=== PATIENT | male | born 1975 | race Caucasian/White ===

== ENCOUNTER 2021-01-12 01:23 | Emergency (ER) | payer SELFPAY ==
[~2021-01-12] VITALS: Ht 180.3 cm; Wt 104.3 kg
[2021-01-12 01:25] VITALS: BP 163/95
[2021-01-12] MEDS ORDERED: LORAZEPAM 1 MG TABLET ONE (01:39)
[2021-01-12] MEDS ORDERED: LORAZEPAM 1 MG TABLET PO ONE (02:00)
== END 2021-01-12 02:09 | disposition home or self-care (01) ==
LOC: ER 01:27
DX: F15.10 Other stimulant abuse, uncomplicated (principal); F41.9 Anxiety disorder, unspecified; Z59.0 Homelessness